=== PATIENT | male | born 1955 ===

== ENCOUNTER 2017-11-13 14:20 | Outpatient (CLI) | payer BC ==
--- NOTE | 2017-11-13 15:32 | Diagnostic Imaging Report ---
Indication: Cough Comparison: 07/11/2010 2 views of the chest obtained. Findings: The interstitium of the lungs is prominent. Suspect much or all of this is technical in nature. This is especially true with regard to comparison as the technique is quite dissimilar from the previous occasion. The lungs are slightly hyperexpanded. There is no consolidation. Heart size is normal. Both nipple shadows are noted. Bones are osteopenic. IMPRESSION: Prominence of the pulmonary interstitium probably technical in nature. No acute disease identified. COPD Note: The chest x-ray examination will be repeated utilizing a different technique. We are in the process of contacting the patient. When the exam is repeated and reviewed an addendum will be generated.
== END 2017-11-13 16:20 | disposition home or self-care (01) ==
LOC: RAD 14:20
DX: R05 Cough (principal); J44.9 Chronic obstructive pulmonary disease, unspecified
CPT/HCPCS: 71046